=== PATIENT | male | born 1955 | race Caucasian/White ===

== ENCOUNTER 2016-12-05 10:11 | Observation (INO) | payer BC ==
[2016-11-28 11:05] LABS: HEMATOCRIT 41.8 % (40.0-51.0); HEMOGLOBIN 14.8 g/dL (13.6-17.8)
[2016-11-28 11:17] LABS: CALCIUM, SERUM 9.3 MG/DL (8.5-10.4); CHLORIDE, SERUM 104 MMOL/L (96-112); CO2 (CARBON DIOXIDE) 25 MMOL/L (24-34); CREATININE 1.16 MG/DL (0.70-1.30); GFR AFRICAN AMERICAN 78 ML/MIN (>=60); GFR NON AFRICAN AMERICAN 67 ML/MIN (>=60); POTASSIUM, SERUM 4.2 MMOL/L (3.5-5.3); SODIUM, SERUM 140 MMOL/L (135-148)
[2016-11-28 11:18] LABS: BUN (BLOOD UREA NITROGEN) 14 MG/DL (6-23); GLUCOSE, SERUM 173 MG/DL (60-99)
--- NOTE | ~2016-12-05 | OP ---
Record Of [address] [address] NAME: BRENDON SIMMONS : 53 STATUS : DIS Lizbet PAT#: [id number] AGE: 61 ADM/REG DATE : 12/05/16 MR#: [id number] REPORT SERV DATE: 12/06/16 DICTATED BY: LEE ORDONEZ DATE: 12/05/16 REPORT STATUS : Draft TRANSCRIBED BY: MODL DATE: 12/05/16 DATE OF PROCEDURE: 12/05/2016 PREOPERATIVE DIAGNOSES: 1. Severe obstructive sleep apnea syndrome. 2. Septal deviation. 3. Bilateral inferior turbinate hypertrophy. 4. Chronic nasal obstruction. 5. Uvular redundancy. 6. Base of tongue collapse/lingual tonsillar hypertrophy. 7. Hypopharyngeal collapse. POSTOPERATIVE DIAGNOSES: 1. Severe obstructive sleep apnea syndrome. 2. Septal deviation. 3. Bilateral inferior turbinate hypertrophy. 4. Chronic nasal obstruction. 5. Uvular redundancy. 6. Base of tongue collapse/lingual tonsillar hypertrophy. 7. Hypopharyngeal collapse. PROCEDURES: 1. Uvulopalatopharyngoplasty. 2. Septoplasty. 3. Bilateral inferior turbinoplasty. 4. Hyoid suspension laryngoplasty. SURGEON: Lee Ordonez M.D. ANESTHESIA: General. COMPLICATIONS: None. COUNTS: All counts correct following the procedure. ESTIMATED BLOOD LOSS: 30 mL. PREOPERATIVE INFORMED CONSENT: We discussed the risks and benefits of surgery including, but not limited to bleeding, infection, possible loss of airway and , possible persistent obstructive sleep apnea syndrome requiring further CPAP versus more advanced sleep surgery, possible need for revision or more advanced sleep surgery, possible postoperative septal perforation, possible CSF leak, possible ocular injury including blindness, possible velopalatal incompetence, possible postoperative dysphagia which could be temporary or permanent, and consent is on the chart. PROCEDURE IN DETAIL: The patient was brought to the operating suite and placed on the Record Of [address] [address] NAME: BREDNON SIMMONS : 53 STATUS : DIS Lizbet PAT#: [id number] AGE: 61 ADM/REG DATE : 12/05/16 MR#: [id number] REPORT SERV DATE: 12/06/16 DICTATED BY: LEE ORDONEZ DATE: 12/05/16 REPORT STATUS : Draft TRANSCRIBED BY: AMY DATE: 12/05/16 operative table in supine position. General endotracheal anesthesia was initiated without incident. Retraction suture was placed in the midline of tongue and then the bite guard was placed on the upper teeth and a gauze was used to protect the tongue from the lower teeth. The F-K retractor was carefully inserted into oral cavity and used to suspend the patient. Despite multiple efforts to getting the tongue into correct position, he has such a large tongue and such a small airway, the operative arms were brought into the field, even with best exposure that could be obtained, lingual tonsil tissue and vallecular region could not be visualized using a 30-degree scope; and therefore, the lingual tonsillectomy portion of the procedure was abandoned. Then, the F-K retractor was removed and attention was taken to the oral cavity for uvulopalatopharyngoplasty. The patient was brought to the operative suite and placed on the operating table in the supine position. General endotracheal anesthesia was initiated without incident using the laser endotracheal tube. The patient's head and neck was cleaned, prepped and draped in the usual sterile fashion. Following this, moistened eye pads were placed on the patient's eyes. Attention was then taken to the oral cavity. A Diego-Prasad retractor was carefully inserted in the oral cavity and used to retract the tongue anteriorly and inferiorly in order to visualize the oropharynx. The soft palate, uvula, and anterior tonsillar pillars were injected with 1% Lidocaine with 1:100,000 epinephrine for hemostasis. Approximately 6.0 cc. was used. Following this a # 12-blade scalpel was used to make an incision down both anterior tonsillar pillars then across the palate to the level of the base of the uvula. The right superior pole of the tonsil was grasped using the tonsillar tenaculum and retracted medially. Using electrocautery, the tonsil was dissected off the underlying pharyngeal musculature down to the inferior pole where it was transected and sent for permanent pathology. There was minimal bleeding. A similar procedure was then carried out on the left tonsil as on the right. Again, there was minimal bleeding. The specimens were sent for permanent pathology. Suction cautery was then obtained. Using a Herd dissector, meticulous hemostasis was achieved in both tonsillar fossae. Then curved Metzenbaum scissors were used to transect the uvula at its base preserving the posterior mucosa. The mucosal flaps were advanced and closed using interrupted 3-0 Vicryl sutures. The oral cavity was irrigated with sterile saline and suctioned until clear. Attention was then taken to the nose and both sides of the septum, as well as the inferior turbinates were injected with 1% Lidocaine with 1:100,000 epinephrine for hemostasis. Approximately 12.0 cc. was used. Following this, a #15-blade scalpel was used to perform a left hemitransfixion incision down to the underlying septal cartilage. The mucoperichondrial flap was raised along the left side of the septum using a Garwin and Osborne elevators. The mucoperiosteum was raised off of the maxillary crest using a Romano elevator. A thin strip of cartilaginous septum along the maxillary crest was removed using the Lana elevator and the bony cartilaginous junction was using the Osborne elevator. The mucoperiosteum was raised on both sides of the bony nasal septum. The deviated bony nasal septum was taken down using open Cumberland-Vera forceps and Luis forceps. The deviated maxillary crest was also removed using Luis forceps. This allowed the cartilaginous septum to swing back into the midline. The left hemitransfixion Record Of Operation [place] [id number] [facility] [place]. [address] NAME: BRENDON SIMMONS : 53 STATUS : DIS Lizbet PAT#: [id number] AGE: 61 ADM/REG DATE : 12/05/16 MR#: [id number] REPORT SERV DATE: 12/06/16 DICTATED BY: LEE ORDONEZ DATE: 12/05/16 REPORT STATUS : Draft TRANSCRIBED BY: AMY DATE: 12/05/16 incision was then closed using interrupted 4-0 Chromic sutures and attention was then taken to the turbinates. Both inferior turbinates underwent submucous resection using the Xomed turbinates shaver in a systematic fashion. Both inferior turbinates were infractured and both the medial and lateral surfaces were cauterized using the harmonic scalpel. Both inferior turbinates were outfractured. Breathe-Easy septal splints were placed on both sides of the nasal septum and sutured in the midline using 2-0 Nylon suture. Following this, a bite guard was placed on the upper teeth and a laser Dedo laryngoscope was carefully inserted in the oral cavity and advanced down the midline tongue down to the vallecula region. The patient was then suspended from the [place] stand. Moistened towels were placed on the patient's face. The microscope was brought into the field and using the CO2 laser attachment with the micromanipulator attachment set at 7 wayne, 200-millijoules, an inverted V-shaped area of the lingual tonsil tissue and base of tongue were systematically vaporized, enlarging the base of tongue airway. Once adequate tissue had been removed, any bleeding sites were cauterized using laryngeal suction cautery. The patient was then taken out of suspension and the Dedo laryngoscope was removed. The neck was cleaned and prepped in the usual sterile fashion. Following this, a transverse incision was marked out over the level of the hyoid bone in the midline and then electrocautery was used to perform the incision and dissection was carried out down through the subcutaneous fat down to the superior aspect of the thyroid ala and the hyoid bone. Midline fascia was divided. The superior aspect of the thyroid ala was exposed using a blunt dissection with peanut pusher, then the supra and infrahyoid musculature was divided using electrocautery from the anterior cornu to anterior cornu and 3-0 Ethibond suture was placed on either side of the midline between the thyroid ala and the hyoid bone. The hyoid bone was advanced over the superior aspect of the thyroid ala and sutured into place. The wound was copiously irrigated with sterile saline. The quarter-inch Shane drain was brought out through the lower neck skin. The skin was closed in layers using 3-0 and 4-0 Vicryl followed by a 4-0 Prolene subcuticular closure followed by benzoin, Steri-Strips, Telfa, and a fluff dressing. The patient was awakened from anesthesia and taken to the recovery room in stable condition. THERESA/AMY Lee Ordonez M.D. / [id number] CC: Lee OrdonezAdilene M.D. Daniel Smith, M.D.
[~2016-12-05 10:11] MED LIST: ACET500CAP PO; AFRIN15 NAS; ALLEGRA180 PO; ALTA2.5 PO; ANADS PO; ARIMIDEX1 PO; ASAB PO; ATV1 PO; BUM1 PO; C5; CELEXA20 PO; CHERATUSSIN PO; COZAAR100 MG PO; DEXTROAMPHET10 MG PO; DITRO5 PO; ELIQUIS 5 MG TAB5 MG PO; EXCEDRIN MIGRA1 EAC1 PO; FLEX PO; FLOMAX4 PO; FLOVENT220 INH; GLUCXL2.5 PO; KLOR-CON M1010 MEQ PO; L40 PO; LEVAQUIN750 MG PO; LEXAPRO10 PO; LOP100 PO; LOP50 PO; MAXIMUM D3 PO; MYRBETRIQ50 MG PO; NITROGLYCERIN PO/SL; NITROSPRAY SL; NORCO1 TA2 PO; NORCO1 TAB PO; NORV10 PO; NORV5 PO; NUVIGIL250 MG PO; PCET PO; SINGULAIR1 PO; SPIRIVA RESPIMAT INH; T PO; TOPXL50 PO; TRIBENZOR 40-11 EAC1 PO; VESICARE5 PO; WELLXL300 PO; ZYRTEC ALLGY10 MG PO
[2016-12-06 03:39] LABS: BASOPHILS 0.1 %; BASOPHILS ABSOLUTE 0.01 10/3/uL (0.0-0.16); EOSINOPHILS 0 %; IMMATURE GRANULOCYTES 0.5 %; IMMATURE GRANULOCYTES ABSOLUTE 0.08 10/3/uL (0.0-0.11); LYMPHOCYTES 7.4 %; MANUAL DIFF NO %; MEAN CORPUS HGB CONC 34.1 g/dL (32.0-36.0); MEAN CORPUSCULAR HEMOGLOB 31.7 pg (26.0-34.0); MEAN PLATELET VOLUME 9.3 fL (9.2-13.0); MONOCYTES 6.2 %; MONOCYTES ABSOLUTE 1.09 10/3/uL (0.21-1.20); NEUTROPHILS 85.8 %; NEUTROPHILS ABSOLUTE 15.09 10/3/uL (2.02-8.40); PLATELET COUNT 244 10/3/uL (150-400); RBC DISTRIBUTION WIDTH 13.8 % (12.0-16.0); RED CELL COUNT 4.41 10/6/uL (4.7-6.1); WHITE BLOOD CELLS 17.6 10/3/uL (4.5-10.5)
[2016-12-06 03:53] LABS: CHLORIDE, SERUM 104 MMOL/L (96-112); CO2 (CARBON DIOXIDE) 29 MMOL/L (24-34); CREATININE 1.38 MG/DL (0.70-1.30); GFR AFRICAN AMERICAN 63 ML/MIN (>=60); GFR NON AFRICAN AMERICAN 54 ML/MIN (>=60); GLUCOSE, SERUM 175 MG/DL (60-99); POTASSIUM, SERUM 4.6 MMOL/L (3.5-5.3); SODIUM, SERUM 140 MMOL/L (135-148)
[2016-12-06 03:55] LABS: BUN (BLOOD UREA NITROGEN) 19 MG/DL (6-23); CALCIUM, SERUM 8.3 MG/DL (8.5-10.4)
[2016-12-06] MEDS ORDERED: AMOXIL400 MG/5 M PO (09:25)
[2016-12-06] MEDS ORDERED: HYCET 7.5 MG-3473 ML PO (09:26)
[2016-12-06] MEDS ORDERED: ZOFRAN4 PO (09:27)
== END 2016-12-06 13:42 | disposition home or self-care (01) ==
LOC: SDC 10:11 → CVICU 19:47
PROVIDERS: Otolaryngology
PROC: 0CBM0ZZ Excision of Pharynx, Open Approach (ICD-10-PCS; 2016-12-05)
PROC: 0CS70ZZ Reposition Tongue, Open Approach (ICD-10-PCS; 2016-12-05)
PROC: 0C5S8ZZ Destruction of Larynx, Via Natural or Artificial Opening Endoscopic (ICD-10-PCS; 2016-12-05)
PROC: 09RM0KZ Replacement of Nasal Septum with Nonautologous Tissue Substitute, Open Approach (ICD-10-PCS; principal; 2016-12-05 12:00)
PROC: 09RM07Z Replacement of Nasal Septum with Autologous Tissue Substitute, Open Approach (ICD-10-PCS; 2016-12-05 12:00)
DX: J34.2 Deviated nasal septum (principal); J34.3 Hypertrophy of nasal turbinates; J34.89 Other specified disorders of nose and nasal sinuses; G47.33 Obstructive sleep apnea (adult) (pediatric); I11.0 Hypertensive heart disease with heart failure; I50.43 Acute on chronic combined systolic (congestive) and diastolic (congestive) heart failure; I48.2 Chronic atrial fibrillation; E78.5 Hyperlipidemia, unspecified; F32.9 Major depressive disorder, single episode, unspecified; K21.9 Gastro-esophageal reflux disease without esophagitis; Z90.49 Acquired absence of other specified parts of digestive tract; Z98.890 Other specified postprocedural states; Z88.5 Allergy status to narcotic agent; Z88.6 Allergy status to analgesic agent; Z88.8 Allergy status to other drugs, medicaments and biological substances
CPT/HCPCS: 71010; 72040; 80048; 82962; 85014; 85018; 85025; 87641; 88304; 93005; 96374; 96376; A9270-GY; G0378; J0690; J2250; J2270; J2370; J2710; J3010